=== PATIENT | male | born 1990 | race Caucasian/White ===

== ENCOUNTER 2017-07-17 05:30 | Emergency (ER) | payer MEDICAID ==
[~2017-07-17] VITALS: Ht 177.8 cm; Wt 72.6 kg
[2017-07-17 05:36] VITALS: BP 142/81
--- NOTE | 2017-07-17 05:45 | NUR ---
PT TAKEN TO BED 5
--- NOTE | 2017-07-17 05:47 | NUR ---
27 Y/O M W/C/O CHEST PAIN WITH DIZZINESS X 8 HRS. PAIN RADIATES TO LT. ARM. NO INJURY OR TRAUMA. DENIES ANY DRUG USE. NO MEDICAL HX. NORMAL SINUS RHYTHM, ON AUTOMATION SOFTWARE ENGINEER. ER MD MADE AWARE.
[2017-07-17] MEDS ORDERED: KETOROLAC 30 MG/ML VIAL IM ONE (06:05)
[2017-07-17] MEDS ORDERED: ACETAMINOPHEN EXTRA STRENGTH 500 MG TAB PO ONE (06:05)
--- NOTE | 2017-07-17 06:11 | NUR ---
X-Ray at bedside.
--- NOTE | 2017-07-17 06:21 | NUR ---
PT RESTING IN BED, ON TEMPLE MARKER. STATES HIS PAIN HAS GOTTEN DOWN TO 5/10. NORMAL SINUS RHYTHM.
--- NOTE | 2017-07-17 07:03 | NUR ---
Pt report given to CLAUDIA MOONEY. Transfer of care at this time.
--- NOTE | 2017-07-17 07:04 | NUR ---
RECEIVED REPORT FROM CLAUDIA FARIAS.
--- NOTE | 2017-07-17 07:07 | NUR ---
FAMILY AT BEDSIDE. Patient appears to be resting comfortably in bed. BP138/82; DENIES HEADACHE AT THIS TIME Respirations even and unlabored.WILL CONTINUE TO MONITOR.
--- NOTE | 2017-07-17 07:40 | NUR ---
Patient being reevaluated by DR RODRIGUEZ at bedside.
[2017-07-17 07:50] VITALS: BP 130/67
--- NOTE | 2017-07-17 07:50 | NUR ---
Patient discharged with v/s stable. Written and verbal after care instructions given and explained. Patient alert, oriented and verbalized understanding of instructions. Ambulatory with steady gait. All questions addressed prior to discharge. ID band removed. Patient advised to follow up with PMD. Rx of NAPROSYN& TYLENOL given. Patient educated on indication of medication including possible reaction and side effects. Opportunity to ask questions provided and answered.
== END 2017-07-17 07:50 | disposition home or self-care (01) ==
LOC: MED 05:30
DX: R07.9 Chest pain, unspecified (principal); R42 Dizziness and giddiness; F17.210 Nicotine dependence, cigarettes, uncomplicated
CPT/HCPCS: 36415; 71010; 84484; 93005; 96372; 99285; J1885; Q0092